=== PATIENT | male | born 1995 | race Caucasian/White ===

== ENCOUNTER 2022-03-11 10:20 | Observation (INO) | payer BC ==
[2022-03-11] MEDS ORDERED: Sodium Chloride 0.9% 1,000 ML IV ONE ×3 (12:29→17:23)
[2022-03-11] MEDS ORDERED: Ondansetron 4 MG/2 ML SDV IVPUSH ONE (13:04)
[2022-03-11] MEDS ORDERED: Ketorolac 30 MG/ML SDV IVPUSH ONE (13:05)
[2022-03-11] MEDS ORDERED: Acetaminophen 500 MG Tab PO ONE (13:06)
[2022-03-11 13:20] LABS: CARBON DIOXIDE,CO2 25.3 mmol/L (21.0-32.0); POTASSIUM,K 3.6 mmol/L (3.5-5.1)
[2022-03-11] MEDS ORDERED: Magnesium Sulfate/Water 4 GM in Premix Bag 1 BAG IV ONE (14:11)
[2022-03-11 17:05] LABS: CARBON DIOXIDE,CO2 25.8 mmol/L (21.0-32.0); POTASSIUM,K 4.3 mmol/L (3.5-5.1)
[2022-03-11] MEDS ORDERED: Acetaminophen 325 MG Tab PO PRN (18:02)
[2022-03-11] MEDS ORDERED: Albuterol/Ipratropium 3.0-0.5 MG/3 ML Neb Soln NEB PRN (18:02)
[2022-03-11] MEDS ORDERED: Ondansetron 4 MG/2 ML SDV IVPUSH PRN (18:02)
[2022-03-11] MEDS ORDERED: Lactated Ringers 1,000 ML IV ONE (18:02)
[2022-03-11] MEDS ORDERED: Lactated Ringers 1,000 ML IV SCH (18:15)
[2022-03-11 20:29] LABS: CARBON DIOXIDE,CO2 25.7 mmol/L (21.0-32.0); POTASSIUM,K 3.8 mmol/L (3.5-5.1)
[2022-03-12 07:49] LABS: CARBON DIOXIDE,CO2 24.3 mmol/L (21.0-32.0); POTASSIUM,K 3.4 mmol/L (3.5-5.1)
[2022-03-12] MEDS ORDERED: Acetaminophen 325 MG Tab PO ONE (08:56)
[2022-03-12] MEDS: Potassium Chloride 20 MEQ Tab.ER PO SCH (10:00)
[2022-03-12] MEDS ORDERED: Magnesium Oxide 400 MG Tab PO ONE (11:10)
[2022-03-12 12:38] LABS: CARBON DIOXIDE,CO2 22.8 mmol/L (21.0-32.0); POTASSIUM,K 3.8 mmol/L (3.5-5.1)
[2022-03-12] MEDS ORDERED: Loperamide 2 MG Cap PO ONE (18:29)
[2022-03-12] MEDS ORDERED: Acetaminophen 325 MG Tab PO PRN (22:00)
[2022-03-13 06:12] LABS: CARBON DIOXIDE,CO2 27.5 mmol/L (21.0-32.0); POTASSIUM,K 4.1 mmol/L (3.5-5.1)
[2022-03-13] MEDS: Potassium Chloride 20 MEQ Tab.ER PO SCH (08:30)
== END 2022-03-13 11:00 | disposition home or self-care (01) ==
LOC: MW.ED 10:20 → MW.MS 17:21
PROVIDERS: ADMIT Student in an Organized Health Care Education/Training Program; ATTEND Student in an Organized Health Care Education/Training Program
DX: T67.5XXA Heat exhaustion, unspecified, initial encounter (principal); N17.9 Acute kidney failure, unspecified; E86.0 Dehydration; E83.42 Hypomagnesemia; Z20.822 Contact with and (suspected) exposure to COVID-19
CPT/HCPCS: 36415; 70450; 71045; 80048; 80053; 81003; 82550; 83690; 83735; 85025; 85027; 85610; 87045; 87046; 87324; 87328; 87329; 87449; 87635; 87899; 93005; 96361; 96365; 96366; 96375; 99285; A9270; G0378; J1885; J2405; J3475; J7030; J7120; 93010; 99217; 99219; 99225; U0002